=== PATIENT | male | born 1985 | race African-American/Black ===

== ENCOUNTER 2017-02-07 16:47 | Emergency (ER) | payer SELFPAY ==
[~2017-02-07] VITALS: Ht 170.2 cm; Wt 80.0 kg
[2017-02-07] MEDS ORDERED: KETOROLAC 60MG/2ML VIAL IM ONE (22:15)
[2017-02-07 23:02] VITALS: BP 126/90
[2017-02-07 23:14] LABS: BASOPHILS % 0.5 % (0.0-2.0); EOSINOPHILS % 0.9 % (0.0-5.0); HEMATOCRIT. 53.2 % (42.0-52.0); HEMOGLOBIN. 18.1 g/dL (14.0-18.0); LYMPHOCYTES % 24.3 % (20.0-50.0); MEAN CORPUSCULAR HEMOGLOBIN 30.8 pg (28.0-32.0); MEAN CORPUSCULAR VOLUME 90.3 fL (80.0-94.0); MONOCYTES % 9.3 % (2.0-8.0); PLATELET 207 x1000/uL (130-400); RED BLOOD CELL COUNT 5.89 mill/uL (4.7-6.1); RED CELL DISTRIBUTION WIDTH 13.8 % (11.6-14.6)
[2017-02-07 23:16] LABS: CHLORIDE 104 mEq/L (98-107)
[2017-02-07 23:19] LABS: INR 1.1; PARTIAL THROMBOPLASTIN TIME 32.4 sec (23.4-31.0); PROTHROMBIN TIME 11.2 sec (9.4-11.6)
[2017-02-07 23:24] LABS: CARBON DIOXIDE 27 mEq/L (21-32)
== END 2017-02-08 00:45 | disposition home or self-care (01) ==
LOC: ER 16:47
DX: R07.89 Other chest pain (principal); R51 Headache; F17.210 Nicotine dependence, cigarettes, uncomplicated
CPT/HCPCS: 36415; 71010; 80053; 83690; 85025; 85610; 85730; 93005; 96372; 99285; J1885